=== PATIENT | female | born 1995 | race Caucasian/White ===

== ENCOUNTER → 2020-06-12 17:50 | Outpatient (CLI) | payer BC, SELFPAY | PROVIDERS: Referring Provider Nurse Practitioner Family; Visit Provider Nurse Practitioner Family | DX: B34.9 Viral infection, unspecified (principal) | CPT/HCPCS: 87635; C9803; U0003 ==

== ENCOUNTER 2021-06-07 15:26 | Emergency (ER) | payer SELFPAY ==
[2021-06-07 15:27] VITALS: BP 133/87; PULSE 86; RESP 16; TEMP 36.6; O2SAT 96; BMI 37.1
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
--- NOTE | 2021-06-07 16:10 | RAD_ITS ---
INDICATION: Injury/Pain EXAMINATION/TECHNIQUE: X-RAY - XR Spine Cervical 2 or 3 Views COMPARISON: None. FINDINGS: VERTEBRAE: Preserved vertebral body height. No fracture. No spondylolisthesis. Preservation of the normal cervical lordosis. No significant facet arthropathy. DISCS: Disc spaces are maintained. NECK SOFT TISSUES: No prevertebral soft tissue widening. LUNG APICES: Clear. RAD/Cerv Spine 2 or 3 Views IMPRESSION: No evidence of acute fracture or spondylolisthesis. Electronically Signed: Brian Olvera MD at 16:30 EDT Tel , Service support ,
[2021-06-07] MEDS: Naproxen 250 MG Tablet 500 MG PO (16:18)
== END 2021-06-07 16:37 | disposition home or self-care (01) ==
PROVIDERS: Emergency Provider Emergency Medicine; PCP Internal Medicine
DX: S16.1XXA Strain of muscle, fascia and tendon at neck level, initial encounter (principal); E66.9 Obesity, unspecified; V43.52XA Car driver injured in collision with other type car in traffic accident, initial encounter; Y92.410 Unspecified street and highway as the place of occurrence of the external cause
CPT/HCPCS: 72040; 99283

== ENCOUNTER 2021-11-07 14:19 | Emergency (ER) | payer BC, SELFPAY ==
[2021-11-07 14:19] VITALS: BP 118/79; PULSE 76; RESP 15; TEMP 35.7; O2SAT 98; BMI 37.3
[2021-11-07] MEDS: 0.9% Normal Saline 1,000 ML 999 ML IV (17:26)
[2021-11-07] MEDS: proCHLORPERazine 10 MG/2 ML Vial IV (17:27)
[2021-11-07] MEDS: DiphenhydrAMINE 50 MG/ML Syringe 25 MG IV (17:27)
--- NOTE | 2021-11-07 17:32 | CT_ITS ---
STUDY: CT BRAIN WITHOUT CONTRAST REASON FOR EXAM: Female, 26 years old. headache TECHNIQUE: Transaxial CT imaging of the brain was performed without administration of intravenous contrast material. Individualized dose optimization techniques were used for this CT. COMPARISON: None FINDINGS: Normal calvarium. Normal soft tissues. Normal size ventricles and extra-axial spaces for the patient''s age. Normal white matter tracts of the cerebral hemispheres. Normal basal ganglia and thalami. Normal brainstem. Normal cerebellum. There is no intracranial hemorrhage. There are no findings of an acute ischemic infarction. Normal visualized paranasal sinuses. ASPECTS 10 CT/Brain/Head without Contrast IMPRESSION: There are no acute intracranial findings. Electronically Signed: Vick Chaudhary MD at 17:50 EST ,
[2021-11-07] MEDS: Ketorolac 15 MG/ML Vial IV (18:50)
--- NOTE | 2021-11-07 19:02 | EDS_ITS ---
HPI History of Present Illness Chief Complaint: Headache Informant: patient Narrative Narrative: Is a 26-year-old female present with worsening headache. She states is been worsening for the past week. Denies any trauma. It was gradual in onset. It is over her forehead and goes to the back of her head. No associated neck pain, nasal congestion, vision changes, blurry vision, fever or rash. No associated nausea or vomiting. States she has similar headache when she had Covid. She has been alternating Tylenol ibuprofen with no relief. Having worsening photo and phono sensitivity so she came to the emergency room. Not sure she is ever had a head CT. Denies any significant history of migraines or family history of migraines. No other complaints at this time. PFSH PFSH Home Medications naproxen 500 mg PO BID #14 tab 06/07/21 [Rx Last Taken Unknown] Allergy/AdvReac Type Severity Reaction Status Date / Time ARTIFICIAL CAFFEINE Allergy Upset Uncoded 11/07/21 14:21 Stomach Social History household members: significant other Smoking Status: Never smoker alcohol intake: never substance use type: does not use ROS ROS ED Constitutional Constitutional ED: Denies chills or fever(s) Eyes Eyes: Reports other Details: Positive photophobia ; Denies blurry vision or change in vision ENT ENT ED: Denies ear pain, rhinorrhea or sore throat Cardiovascular Cardiovascular: Denies chest pain Respiratory/Chest Respiratory/Chest: Denies cough or dyspnea Gastrointestinal Gastrointestinal: Denies abdominal pain, nausea or vomiting Musculoskeletal Musculoskeletal: Denies arthralgias, myalgias or neck pain Integumentary Denies rash Neurologic Neurologic: Reports headache(s); Denies paresthesias or weakness Psychiatric Psychiatric: Denies depression EXAM Physical Exam Const Vital Signs: 11/07/21 14:19 Temperature 96.3 F L Temperature Source Temporal Pulse Rate 76 Respiratory Rate 15 Blood Pressure 118/79 Blood Pressure Mean 92 Pulse Ox 98 Oxygen Delivery Method Room Air Positive well nourished and well developed General Appearance ED: well developed HEENT Reports normocephalic, TM's clear and moist mucous membranes atraumatic Tympanic Membrane ED: Yes TM's clear Eyes PERRL and EOMs intact bilaterally Neck no lymphadenopathy, supple and no meningeal signs Resp normal respiratory effort Cardio regular rate, regular rhythm and no murmurs GI non-tender and non-distended Palpation: soft Neuro oriented x3, CN's II-XII intact bilaterally and no sensory deficits noted Sensorium / Orientation: awake and alert Motor Exam: strength 5/5 throughout Psych mental status grossly normal Skin Lesions: no lesions Rashes: no rashes MDM MDM MDM Narrative Medical decision making narrative: Patient evaluated for 1 week of intermittent headache. She appears nontoxic in no acute distress. Patient is wearing a sleep mask to block out the light in the room. She is not having nuchal rigidity. I suspect she has a tension headache versus migraine headache. Given the fact that she denies any significant history of headaches I did obtain a head CT which is negative for any acute process. This was gradual in onset and has been waxing and waning. I do not suspect subarachnoid hemorrhage or more serious pathology at this time. Patient not have any infectious symptoms including fever and does not have any nuchal rigidity. I do not think this is meningitis. Is given Compazine, Toradol, Benadryl and IV fluids. On reevaluation she is resting comfortably and states her headache is almost completely gone. Will be discharged home. Ducted alternate Tylenol and ibuprofen at home. Counseled on return precautions. Radiography Diagnostic Testing: Clinical Impression(s) from Imaging Studies Brain CT 11/07/21 17:32 IMPRESSION: There are no acute intracranial findings. Electronically Signed: Vick Chaudhary MD at 17:50 EST Reading Location ID and State: [facility]– [place] / MD , Service support , Discharge Plan Triage Chief Complaint: Headache ED Provider: Elvi Block Dx/Rx/DC Orders Clinical Impression: Headache, Photophobia of both eyes Instructions: ED Headache Unspecified Prescriptions: No Action naproxen 500 MG tablet 500 mg PO BID Qty: 14 RF: 0 Primary Care Provider: Andreas Hay Referrals: Andreas Hay MD [Primary Care Provider] - Disposition Disposition: Home, Self Care
== END 2021-11-07 20:32 | disposition home or self-care (01) ==
PROVIDERS: Emergency Provider Emergency Medicine; PCP Internal Medicine; Visit Provider Emergency Medicine
DX: R51.9 Headache, unspecified (principal); H53.143 Visual discomfort, bilateral; Z86.16 Personal history of COVID-19
CPT/HCPCS: 70450; 96361; 96374; 96375; 99285; J7030; A4216